=== PATIENT | male | born 2000 | race Caucasian/White ===

== ENCOUNTER → 2023-06-28 13:08 | Outpatient (CLI) | payer OTHER, SELFPAY ==
--- NOTE | 2023-06-28 | DI.RAD.S_ITS ---
PROCEDURE: FL SHOULDER INJECTION MR/CT RT INDICATIONS: INSTABILITY OF RT SHOULDER COMPARISON: None. TECHNIQUE: The indications, alternatives, benefits, risks, and complications of the procedure were explained to the patient. Written informed consent was obtained and placed in the chart. The shoulder was examined fluoroscopically and a site for needle placement chosen for entry into the glenohumeral joint from an anterior approach. The skin was prepped and draped in a sterile fashion, and 1% lidocaine infiltrated from skin down to joint capsule. A spinal needle was inserted into the glenohumeral joint, and a small amount of iodinated contrast media injected to confirm intra-articular placement of the needle tip. This was followed by approximately 12 mL dilute solution of a gadolinium containing MR contrast agent. The needle was removed and a dressing was applied. The patient was given postprocedural instructions and sent to the MR suite for MR imaging. FINDINGS: A single fluoroscopic spot image demonstrates intra-articular location of injected iodinated contrast. IMPRESSION: Successful fluoroscopically guided administration of dilute Gadolinium solution into the shoulder joint for MR arthrogram. Dictated by: Guilherme Munoz M.D. on 06/28/2023 at 17:06 Approved by: Guilherme Munoz M.D. on 06/28/2023 at 17:06
--- NOTE | 2023-06-28 | DI.MRI.S_ITS ---
PROCEDURE: MR SHOULDER RT W CON INDICATIONS: INSTABILITY OF RT SHOULDER TECHNIQUE: After the administration of 12 mL of dilute intra-articular Gadolinium contrast, oblique coronal T1 and T2 spin echo with fat saturation, oblique sagittal T1 spin echo with and without fat saturation, oblique sagittal T2 fast spin echo with fat saturation, axial T1 spin echo with fat saturation through the shoulder. COMPARISON: None. FINDINGS: Image quality: Excellent. Rotator cuff: Low-grade bursal surface partial-thickness tear involving supraspinatus near musculotendinous junction is seen. The infraspinatus, and subscapularis tendons appear intact throughout. No full-thickness rotator cuff tendon rupture. No rotator cuff muscle atrophy on sagittal images. Bones and bursae: There is marrow edema involving anterior and lateral aspect of humeral head. No discrete fracture line is identified. No acromioclavicular joint degeneration. The acromion demonstrates conventional anatomy, without an os acromiale. Capsule and soft tissues: The labrum and glenohumeral ligaments appear intact. The long head of the biceps tendon demonstrates normal location and morphology. The rotator interval appears normal, without fibrosis. The coracohumeral ligament is of normal thickness. No intra-articular bodies. IMPRESSION: 1. Suggestion of bony contusion involving anterior lateral aspect of humeral head without discrete fracture line. No other area of abnormal marrow signal. No dislocation. 2. Low-grade bursal surface partial-thickness tear involving supraspinatus near musculotendinous junction. No full-thickness rotator cuff tendon rupture. No muscle atrophy. 3. No evidence of focal labral tear. Dictated by: Wicho Quinteros M.D. on 06/29/2023 at 11:44 Approved by: Wicho Quinteros M.D. on 06/29/2023 at 11:47
[2023-06-28] MEDS: LIDOCAINE 1% 20 ML INJ (13:53)
[2023-06-28] MEDS: SODIUM CHLORIDE 0.9 % 20 ML VIAL IV (13:53)
== END ==
DX: M25.319 Other instability, unspecified shoulder (principal); M75.111 Incomplete rotator cuff tear or rupture of right shoulder, not specified as traumatic
CPT/HCPCS: 23350; 73222; 77002

== ENCOUNTER → 2025-05-22 12:55 | Outpatient (CLI) | payer OTHER, SELFPAY ==
--- NOTE | 2025-05-22 15:21 | DI.RAD.S_ITS ---
PROCEDURE: XR CHEST 2V INDICATIONS: CHEST PAIN TECHNIQUE: 2 views of the chest were acquired. COMPARISON: None. FINDINGS: Surgical changes and devices: None. Lungs and pleura: Lungs are clear. No pleural effusions or pneumothorax. Mediastinum: Mediastinal contours are normal. Heart size is normal. Bones and chest wall: No suspicious bony abnormalities. Soft tissues appear unremarkable. IMPRESSION: No acute cardiopulmonary abnormality is seen. Dictated by: Guilherme Munoz M.D. on 05/22/2025 at 16:27 Approved by: Guilherme Munoz M.D. on 05/22/2025 at 16:29
== END ==
PROVIDERS: Referring Provider Chiropractor; Visit Provider Chiropractor
DX: R07.9 Chest pain, unspecified (principal)
CPT/HCPCS: 71046

== ENCOUNTER → 2025-06-15 15:35 | Outpatient (CLI) | payer OTHER, SELFPAY | PROVIDERS: Referring Provider Chiropractor; Visit Provider Chiropractor | DX: R06.02 Shortness of breath (principal); J98.8 Other specified respiratory disorders | CPT/HCPCS: 94060 ==